=== PATIENT | female | born 1985 | race African-American/Black ===

== ENCOUNTER 2021-11-29 09:28 | Outpatient (CLI) | payer MEDICAID | END 2021-11-29 23:59 | disposition home or self-care (01) | LOC: RAD 09:28 | PROVIDERS: ATTEND Psychiatry & Neurology Neurology | DX: R94.01 Abnormal electroencephalogram [EEG] (principal); R56.9 Unspecified convulsions | CPT/HCPCS: 95819 ==

== ENCOUNTER 2023-04-07 22:05 | Inpatient (IN) | payer MEDICAID ==
[~2023-04-07] VITALS: Ht 167.6 cm; Wt 65.0 kg
[2023-04-07] MEDS ORDERED: CARI-75 (22:14)
[2023-04-07] MEDS ORDERED: levetiracetam inj 1,000 MG in normal saline 100ml IV soln 100 ML IV ONE (22:30)
[2023-04-07] MEDS ORDERED: normal saline 1000ML IV soln IVB ONE (22:30)
[2023-04-07] MEDS ORDERED: levetiracetam inj 1,000 MG in normal saline 100ml IV soln 90 ML IV ONE (22:30)
[2023-04-07] MEDS ORDERED: ondansetron/PF 4mg/2ml inj IV ONE (22:35)
[2023-04-07 23:06] LABS: BASOPHILS # (AUTO) 0.1 X10'3 (0-0.2); BASOPHILS % (AUTO) 0.5 % (0-1); EOSINOPHILS % (AUTO) 0 % (0-6); HEMATOCRIT 31.9 % (35.0-45.0); HEMOGLOBIN 10.2 g/dl (12.0-16.0); LYMPHOCYTES # (AUTO) 0.6 X10'3 (1.1-4.8); MEAN CORPUSCULAR HEMOGLOBIN 26.6 PG (27.0-31.0); MEAN PLATELET VOLUME 7.7 FL (7.4-10.4); MONOCYTES # (AUTO) 0.3 X10'3 (0-0.9); MONOCYTES % (AUTO) 2.8 % (2-12); NEUTROPHILS # (AUTO) 10.7 X10'3 (1.8-7.7); NEUTROPHILS % (AUTO) 91.7 % (42-75); PLATELET COUNT 339 X10'3 (140-440); RED BLOOD COUNT 3.84 X10'6 (4.20-5.60); RED CELL DISTRIBUTION WIDTH 15.2 % (11.5-14.5); WHITE BLOOD COUNT 11.6 X10'3 (4.5-11.0)
[2023-04-07 23:08] LABS: ALANINE AMINOTRANSFERASE 14 U/L (12-78); ALBUMIN/GLOBULIN RATIO 1.2 (1.1-1.5); ALKALINE PHOSPHATASE 61 IU/L (46-116); ANION GAP 10 (8-16); ASPARTATE AMINO TRANSFERASE 11 U/L (10-37); BILIRUBIN,TOTAL 0.3 MG/DL (0.1-1.0); BLOOD UREA NITROGEN 7 MG/DL (7-18); BUN/CREATININE RATIO 8.6 (10.0-20.0); CHLORIDE 102 MMOL/L (99-107); CREATININE 0.81 MG/DL (0.40-0.90); GLUCOSE 106 MG/DL (70-104); POTASSIUM 3.7 MMOL/L (3.5-5.1); SODIUM 135 MMOL/L (135-145); TOTAL CARBON DIOXIDE 23.2 MMOL/L (24-32); TOTAL PROTEIN 7.3 G/DL (6.4-8.2); eCRCL 89 ML/MIN; eGFR > 90 ML/MIN
[2023-04-07 23:11] LABS: ETHANOL < 10 MG/DL (<10); LIPASE 34 U/L (16-77); MAGNESIUM 1.9 MG/DL (1.5-2.4)
--- NOTE | 2023-04-07 23:17 | NUR ---
Patient resting in bed with eyes closed, respirations even and unlabored. No acute distress noted at this time. Seizure pads in place. Patient close to nurses station. Call light within reach.
--- NOTE | 2023-04-08 00:12 | NUR ---
Daughter (Chelle) [phone] Mother (Belkis) [phone]
[2023-04-08] MEDS ORDERED: LAMO200T31 PO (00:14)
[2023-04-08] MEDS ORDERED: LAMO150T2 PO (00:14)
[2023-04-08] MEDS ORDERED: acetaminophen 325mg tablet PO PRN (02:10)
[2023-04-08] MEDS: acetaminophen 325mg tablet PO PRN ×3 (04:33→23:53)
[2023-04-08 04:37] LABS: URINE HCG NEGATIVE (NEG)
[2023-04-08 04:52] LABS: URINE AMPHETAMINE SCREEN NEGATIVE (Neg); URINE BARBITUATE SCREEN NEGATIVE (Neg); URINE BENZODIAZEPINES SCREEN NEGATIVE (Neg); URINE CANNABINOID SCREEN POSITIVE (Neg); URINE COCAINE SCREEN NEGATIVE (Neg); URINE METHADONE SCREEN NEGATIVE (Neg); URINE OPIATE SCREEN NEGATIVE (Neg); URINE PHENCYCLIDINE SCREEN NEGATIVE (Neg)
[2023-04-08 05:06] LABS: BILIRUBIN,URINE NEGATIVE (Neg); COLOR,URINE YELLOW (Yellow); GLUCOSE, URINE NEGATIVE (Neg); KETONES,URINE 40 mg/dl (Neg); LEUKOCYTE ESTERASE ,URINE NEGATIVE (Neg); NITRITES, URINE NEGATIVE (Neg); OCCULT BLOOD,URINE NEGATIVE (Neg); PH,URINE 6.5 (4.8-8.0); PROTEIN,URINE TRACE mg/dl (Neg); UROBILINOGEN,URINE 0.2 E.U/dL (0.2-1.0)
[2023-04-08 05:07] LABS: CLARITY,URINE CLEAR (Clear); UA COLLECTION TYPE CLN CATCH MIDSTREAM
[2023-04-08 05:31] LABS: SQUAMOUS EPITHELIAL CELL,UR MODERATE /LPF (FEW)
[2023-04-08 05:32] LABS: HYALINE CASTS 0-3 /LPF (NEGATIVE); MUCUS STRANDS MANY /LPF (Neg)
[2023-04-08 05:33] LABS: BACTERIA,URINE FEW /HPF (Neg); RBC,URINE NONE SEEN /HPF (0-2); WBC,URINE 0-4 /HPF (0-4)
[2023-04-08] MEDS ORDERED: LAMOTRIGINE PO SCH (08:00)
[2023-04-08] MEDS: LAMOTRIGINE 200 MG PO SCH (08:00)
[2023-04-08] MEDS: lamoTRIgine 25mg tablet PO SCH (09:45)
--- NOTE | 2023-04-08 10:53 | NUR ---
Received verbal permission from the patient to talk to the Gregorio about patient condition
--- NOTE | 2023-04-08 15:36 | NUR ---
Teleneuro consultation was done today.
[2023-04-08 18:30] VITALS: BP 136/90; PULSE 81; RESP 18; TEMP 97.6; O2SAT 99
[2023-04-08 22:00] VITALS: BP 121/67; PULSE 66; RESP 16; TEMP 98.9; O2SAT 98
[2023-04-09 06:32] VITALS: BP 125/79; PULSE 67; RESP 16; TEMP 99.2; O2SAT 98
[2023-04-09 06:45] VITALS: RESP 16; O2SAT 98
[2023-04-09 08:00] VITALS: RESP 16; O2SAT 98
[2023-04-09] MEDS: LAMOTRIGINE 200 MG PO SCH (08:00)
[2023-04-09] MEDS: lamoTRIgine 25mg tablet PO SCH (08:50)
--- NOTE | 2023-04-09 08:52 | NUR ---
pt states she takes 2nd dose of lamictal in evening. Non admin for now, pt likely to be discharged today. If so she will take her NOC dose at home. If she stays I will confirm and change with pharmacy to [facility]
[2023-04-09 10:11] LABS: BASOPHILS # (AUTO) 0.1 X10'3 (0-0.2); EOSINOPHILS % (AUTO) 0.6 % (0-6); HEMOGLOBIN 10.6 g/dl (12.0-16.0); LYMPHOCYTES # (AUTO) 1.7 X10'3 (1.1-4.8); LYMPHOCYTES % (AUTO) 21.5 % (21-51); MEAN CORPUSCULAR HEMOGLOBIN 26.4 PG (27.0-31.0); MEAN CORPUSCULAR VOLUME 82.5 FL (78-98); MEAN PLATELET VOLUME 7.7 FL (7.4-10.4); MONOCYTES # (AUTO) 0.5 X10'3 (0-0.9); MONOCYTES % (AUTO) 6.5 % (2-12); NEUTROPHILS # (AUTO) 5.6 X10'3 (1.8-7.7); NEUTROPHILS % (AUTO) 70.4 % (42-75); PLATELET COUNT 336 X10'3 (140-440); RED CELL DISTRIBUTION WIDTH 15.5 % (11.5-14.5)
[2023-04-09 10:16] LABS: ALANINE AMINOTRANSFERASE 10 U/L (12-78); ALBUMIN 3.9 G/DL (3.4-5.0); ALBUMIN/GLOBULIN RATIO 1.1 (1.1-1.5); ALKALINE PHOSPHATASE 61 IU/L (46-116); ANION GAP 10 (8-16); ASPARTATE AMINO TRANSFERASE 13 U/L (10-37); BILIRUBIN,TOTAL 0.5 MG/DL (0.1-1.0); BLOOD UREA NITROGEN 4 MG/DL (7-18); BUN/CREATININE RATIO 6.1 (10.0-20.0); CALCIUM 8.8 MG/DL (8.5-10.1); CHLORIDE 103 MMOL/L (99-107); CREATININE 0.66 MG/DL (0.40-0.90); GLUCOSE 96 MG/DL (70-104); POTASSIUM 3.4 MMOL/L (3.5-5.1); SODIUM 135 MMOL/L (135-145); TOTAL CARBON DIOXIDE 22.3 MMOL/L (24-32); TOTAL PROTEIN 7.6 G/DL (6.4-8.2); eCRCL 109 ML/MIN; eGFR > 90 ML/MIN
[2023-04-09] MEDS ORDERED: POTA-207 PO (10:54)
--- NOTE | 2023-04-09 12:45 | NUR ---
Pt discharged home with family driving her. IV x2 taken out, tele dcd and returned to tele box. All belongings taken from room. Pt appears appropriate for discharge.
--- NOTE | 2023-04-09 16:10 | NUR ---
student medication administration was done under the direct supervision of the instructor
--- NOTE | 2023-04-09 16:10 | NUR ---
Student documentation: I have reviewed all interventions, assessments performed and documented today by SN @ [facility].
== END 2023-04-09 11:30 | disposition home or self-care (01) | DRG 53 ==
LOC: ER 22:05 → ED HOLD 04-08 02:11 → OBSVTOIN 04-08 08:13 → EDBEDREQ 04-08 17:07 → ORTHO 4S 04-08 17:51
PROVIDERS: ADMIT Family Medicine; ATTEND Family Medicine
DX: G40.919 Epilepsy, unspecified, intractable, without status epilepticus (principal); D64.9 Anemia, unspecified; E87.6 Hypokalemia; G47.00 Insomnia, unspecified; Z63.4 Disappearance and death of family member; Z88.0 Allergy status to penicillin; Z98.51 Tubal ligation status
CPT/HCPCS: 36415; 80053; 80305; 80320; 81001; 81025; 83690; 83735; 84484; 85025; 87081; 99285; G0378; J1953; J2405; J3490; J7030